=== PATIENT | male | born 1980 | race Caucasian/White ===

== ENCOUNTER 2017-12-09 11:05 | Emergency (ER) | payer OTHER ==
[~2017-12-09] VITALS: Ht 172.7 cm; Wt 59.0 kg
[~2017-12-09 11:05] MED LIST: IBU800T
[2017-12-09] MEDS ORDERED: METHOCARBAMOL 500 MG TAB PO ONE (12:30)
[2017-12-09] MEDS ORDERED: KETOROLAC TROMETH 60MG/2ML VIAL IM ONE (12:30)
[2017-12-09 13:33] VITALS: BP 122/80
== END 2017-12-09 13:34 | disposition home or self-care (01) ==
LOC: ER 11:05
DX: M54.9 Dorsalgia, unspecified (principal); E07.89 Other specified disorders of thyroid; G89.29 Other chronic pain; Z85.71 Personal history of Hodgkin lymphoma
CPT/HCPCS: 72100; 96372; 99284; J1885

== ENCOUNTER 2018-07-02 17:02 | Emergency (ER) | payer OTHER ==
[~2018-07-02] VITALS: Ht 167.6 cm; Wt 72.6 kg
[2018-07-02 18:49] LABS: Basophils # (auto) 0 uL; Eosinophils # (auto) 0 uL; Lymphocytes # (auto) 1.1 uL; Mean Corpuscular Volume 110.3 fL (80.0-100.0); Monocytes # (auto) 0.5 uL; Nucleated Red Blood Cells % 0.1 %
[2018-07-02 18:52] LABS: Basophils % (auto) 0.6 % (0.0-2.0); Eosinophils % (auto) 0.8 % (0.0-7.0); Hematocrit 40.6 % (41.0-53.0); Hemoglobin 14.2 g/dL (13.5-17.5); Lymphocytes % (auto) 31.1 % (10.0-50.0); Mean Corpuscular Hemoglobin 38.7 pg (28.0-32.0); Mean Corpuscular Hgb Conc. 35.1 g/dL (32.0-36.0); Monocytes % (auto) 13.2 % (0.0-12.0); Neutrophils % (auto) 54.3 % (37.0-80.0); Platelet Count (auto) 136 10^3/uL (140-450); Red Blood Cells 3.68 10^6/uL (4.5-5.90); Red Cell Distribution Width 13.7 % (11.8-14.3); White Blood Cell 3.7 10^3/uL (4.4-10.8)
[2018-07-02 19:13] LABS: BUN/Creatinine Ratio 14.1; Magnesium 2.7 mg/dL (1.6-2.6); Potassium 3.7 mmol/L (3.5-5.1); Total Protein 7.8 g/dL (6.4-8.2)
[2018-07-02] MEDS ORDERED: ASPirin 81 mg TAB PO ONE (21:00)
[2018-07-02] MEDS ORDERED: METOPROLOL TARTRATE 25 MG TAB PO ONE (21:00)
[2018-07-02 21:36] LABS: INR 0.98 (0.9-1.15); Partial Thromboplastin Time 24.4 sec (23.78-33.04); Prothrombin Time 10.5 sec (9.27-12.13)
[2018-07-03] MEDS ORDERED: ATORVASTATIN 20 MG TAB PO ONE
[2018-07-03] MEDS ORDERED: ENOXAPARIN SOD 30 MG/0.3 ML SYRINGE IV ONE
[2018-07-03] MEDS ORDERED: ENOXAPARIN SOD 40 MG/0.4 ML SYRINGE SC ONE
[2018-07-03 00:47] VITALS: BP 141/79
== END 2018-07-03 01:06 | disposition short-term general hospital (02) ==
LOC: ER 17:02 → EDBD 17:02 → ER 07-03 01:06
DX: I47.1 Supraventricular tachycardia (principal); R79.89 Other specified abnormal findings of blood chemistry; E07.9 Disorder of thyroid, unspecified
CPT/HCPCS: 36415; 71046; 80053; 83735; 83880; 84484; 85025; 85610; 85730; 93005; 94761; 96372; 96374; 99285; J1650

== ENCOUNTER 2018-10-24 09:16 | Emergency (ER) | payer OTHER ==
[~2018-10-24] VITALS: Ht 172.7 cm; Wt 59.0 kg
[2018-10-24] MEDS ORDERED: GLUCAGON HYDROCHLORIDE (RDNA) 1 MG VIAL IM ONE (10:15)
[2018-10-24 13:00] VITALS: BP 112/72
== END 2018-10-24 13:21 | disposition home or self-care (01) ==
LOC: ER 09:16
DX: R09.89 Other specified symptoms and signs involving the circulatory and respiratory systems (principal); E07.89 Other specified disorders of thyroid; Z85.71 Personal history of Hodgkin lymphoma
CPT/HCPCS: 70360; 96372; 99283; J1610